=== PATIENT | female | born 1985 | race Caucasian/White ===

== ENCOUNTER 2017-07-07 13:21 | Emergency (ER) | payer OTHER ==
[2017-07-07 14:31] VITALS: BP 102/72
[2017-07-07] MEDS ORDERED: Ketorolac INJ* 60 MG/2 ML VIAL IM ONE (15:16)
--- NOTE | 2017-07-07 15:24 | UC ---
Throat Pain/Nasal Travis HPI - HPI Summary HPI Summary: Pt presents with c/o sudden onset of "dizziness" when getting up from bed 2 weeks ago to use restroom. Pt reports that she has c/o generalized malaise, DAWSON , occipital head "fullness" and left eye pain. Pt was seen by Dr. Kamara, eye provider 1 week ago for c/o left eye pain pain was told she has "burst blood vessels" in left eye. Pt reports continued photophobia, maxillary and ethmoid sinus pressure but no nasal discharge. Pt denies any history of rash, fever, chills, lyme exposure, MS, Lupus, cough, SOB, or ear pain. - History of Current Complaint Chief Complaint: UCGeneralIllness Stated Complaint: VERTIGO/STIFF NECK Time Seen by Provider: 07/07/17 14:35 Hx Obtained From: Patient Hx Last Menstrual Period: 06/30/17 ?: No Onset/Duration: Gradual Onset, Lasting Weeks - 2, Still Present Severity: Mild Associated Signs & Symptoms: Positive: Sinus Discomfort - maxillary and ethmoid Related History: Seasonal Allergies - was treated 7 years ago by structural iron worker - Epiglottits Risk Factors Epiglottis Risk Factors: Negative - Allergies/Home Medications Allergies/Adverse Reactions: Allergies Allergy/AdvReac Type Severity Reaction Status Date / Time No Known Allergies Allergy Verified 07/07/17 14:24 Home Medications: Home Medications Ibuprofen [Advil] 400 mg PO Q4H PRN 07/07/17 [History Confirmed 07/07/17] PMH/Surg Hx/FS Hx/Imm Hx Previously Healthy: Yes - Surgical History Surgical History: Yes Surgery Procedure, Year, and Place: - Family History Known Family History: Positive: Cardiac Disease - Social History Occupation: Employed Full-time - owns [employer] Lives: With Family Alcohol Use: None Substance Use Type: None Smoking Status (MU): Never Smoked Tobacco Have You Smoked in the Last Year: No - Immunization History Most Recent Influenza Vaccination: Declined Most Recent Tetanus Shot: 07/08/16 Most Recent Pneumonia Vaccination: N/A Review of Systems Constitutional: Fatigue, Other - malaise Skin: Negative Eyes: Photophobia ENT: Sinus Pain/Tenderness - maxillary, Respiratory: Negative Cardiovascular: Negative Gastrointestinal: Negative Genitourinary: Negative Motor: Negative Neurovascular: Negative, Decreased Sensation Musculoskeletal: Myalgia - upper shoulders, base of skull, full ROM negative Kernigs Neurological: Headache Psychological: Negative All Other Systems Reviewed And Are Negative: Yes Physical Exam Triage Information Reviewed: Yes Appearance: Well-Appearing Vital Signs: Initial Vital Signs Temp 98 F 07/07/17 14:25 Pulse 78 07/07/17 14:25 Resp 16 07/07/17 14:25 BP 102/72 07/07/17 14:25 Pulse Ox 100 07/07/17 14:25 Vital Signs Reviewed: Yes Eye Exam: Normal ENT Exam: Other ENT: Positive: TMs normal, Other: - maxillary and ethmoid tenderness Dental Exam: Normal Neck exam: Normal, Other - negative kernig Neck: Positive: Supple, Nontender, No Lymphadenopathy Respiratory Exam: Normal Cardiovascular Exam: Normal Abdominal Exam: Normal Musculoskeletal Exam: Normal Neurological Exam: Normal Psychological Exam: Normal Skin Exam: Normal Throat Pain/Nasal Course/Dx - Course Course Of Treatment: I discussed with the pt the need to follow up with a PCP to establish continuity of care. Additionally, I discussed with patient that if her symptoms do not improve or worsen that she needs to seek medical attention as sson as possible for further evaluation and testing. Pt verbalized understanding and agreed to plan of care. Pt has limited risk for Lyme, consideration for Lupus or MS - Differential Dx/Diagnosis Differential Diagnosis/HQI/PQRI: Sinusitis, Other - tension headache Provider Diagnoses: sinusitis. tension headache Discharge - Discharge Plan Condition: Stable Disposition: HOME Prescriptions: Amoxicillin PO (*) [Amoxicillin 875 MG (*)] 875 mg PO Q12H #20 tab predniSONE TAB* [Deltasone TAB*] 30 mg PO DAILY #9 tab Patient Education Materials: Sinusitis (ED), Tension Headache (ED) Referrals: Aleisha Schneider MD [Medical Doctor] - As Soon As Possible Additional Instructions: Please follow up with your PCP or return to clinic as needed.
== END 2017-07-07 15:34 | disposition home or self-care (01) ==
LOC: UCCORT 13:21
DX: J32.9 Chronic sinusitis, unspecified (principal); G44.209 Tension-type headache, unspecified, not intractable
CPT/HCPCS: 96372; 99212; G0463; J1885

== ENCOUNTER 2018-07-20 07:12 | Inpatient (IN) | payer OTHER ==
[2018-07-20] MEDS ORDERED: OXYTOCIN* 10 UNITS/ML 1 ML VIAL ONE (10:12)
--- NOTE | 2018-07-20 10:17 | HP ---
General Information - General Information Maternal Age: 33 Grav: 4 Para: 3 SAB: 0 IEA: 0 Estimated Due Date: 07/24/18 Maternal Blood Type and Rh: O Positive - Results this Serology/RPR Result: Non-Reactive Rubella Result: Immune HBsAg Result: Negative HIV Result: Negative GBS Culture Result: Negative Past Medical History Delivery History: Hx Complicated Vaginal Delivery Pertinent Past Medical History: See Records Pertinent Past Surgical History: See Records Pertinent Family History: See Records - Antepartal Records Antepartal Records: Reviewed, Complicated by: - previous section Review of Systems Constitutional: Comfortable CV Complaint: No Respiratory: Shortness of Breath: No Genitourinary: No Bleeding, No Leaking Fluid Musculoskeletal: Contractions Neurological: No Headache Movement: Normal Exam Allergies/Adverse Reactions: Allergies No Known Allergies Allergy (Verified 07/07/17 14:24) Vital Signs 07/20/18 07/20/18 07:15 09:55 Temperature 98.2 F Pulse Rate 80 Respiratory 17 17 Rate Blood Pressure 130/75 (mmHg) O2 Sat by Pulse 100 Oximetry Lab Values - Entire Visit: Laboratory Tests 07/20/18 08:00 Blood Type O Positive Antibody Screen Negative - Measurements Height: 5 ft 7 in Weight: 186 lb Weight in lbs: [phone] Body Mass Index (BMI): 29.1 Pre- Weight: 145 lb 0.015 oz Weight Gained This : 40.999 lbs and 0.001 ozs - Exam Breast: Breast Exam Deferred Extremities: No Edema Heart: Normal Rhythm/Heart Sounds HEENT: No Significant Findings Lungs: Clear Bilaterally Rectal: Rectal Exam Deferred Reflexes: DTR 2+ Targeted Exam Findings Cervical Exam: 8cm Effacement: 80%, 90% Station: -2 Presenting Part: Vertex Membrane Status: Intact EFM Findings - External Monitor Findings External Monitor Findings: Accelerations Present, Variability Moderate, Baseline Stable Contractions: Regular, Moderate, 45-90 Seconds Assessment/Plan - Assessment in labor/ GBS negative/ in labor . anesthesia aware. - Plan Plan: Admit - Anticipate Vaginal Delivery
--- NOTE | 2018-07-20 10:18 | PROCNOTE ---
[facility] OB: Delivery Note - Delivery A Date of : 07/20/18 Time of : 09:28 Score 1 Minute: 9 Score 5 Minutes: 9 Gestational Age in Weeks and Days at Delivery: 39 Weeks and 3 Days Delivery Method: Spontaneous Vaginal Labor: Spontaneous Amniotic Fluid: Clear Estimated Blood Loss: 200 Anesthesia/Analgesia: None Anesthesia Comment: None Delivered By: Everton Kate - Nursery Level of Nursery: Regular/Bedside - Perineum Perineal Injury: None/Intact Perineal Repair: None - Events Delivery Events of Note: Protracted/Long Labor - prolonged 2nd stage, Pitocin Only After Delivery Delivery Events of Note Comment: Pitocin Infusion started after delivery of Placenta
[2018-07-20] MEDS ORDERED: Dibucaine 1% 28.35 GM TUBE ONE (11:22)
[2018-07-20] MEDS ORDERED: Witch Hazel PAD* JAR ONE (11:22)
[2018-07-20] MEDS ORDERED: Ibuprofen TAB* 600 MG ONE (11:33)
[2018-07-20] MEDS ORDERED: Dibucaine 1% 28.35 GM TUBE PR PRN (11:39)
[2018-07-20] MEDS ORDERED: Glycerin ADULT SUPP PR PRN (11:39)
[2018-07-20] MEDS ORDERED: Witch Hazel PAD* JAR TOPICAL PRN (11:39)
[2018-07-20] MEDS ORDERED: Acetaminophen TAB* 325 MG PO PRN (11:39)
[2018-07-20] MEDS ORDERED: OXYTOCIN* 10 UNITS/ML 1 ML VIAL IV ONE (11:39)
[2018-07-20] MEDS ORDERED: Simethicone TAB* 80 MG TAB.CHEW PO SCH (12:30)
[2018-07-20] MEDS: Docusate CAP* 100 MG PO SCH ×2 (14:52→20:45)
[2018-07-20] MEDS: Ibuprofen TAB* 600 MG PO PRN (17:59)
[2018-07-21] MEDS: Ibuprofen TAB* 600 MG PO PRN
[2018-07-21 06:22] LABS: ABS Basophils 0.1 10^3/ul (0-0.2); ABS Eosinophils 0 10^3/ul (0-0.6); ABS Lymphocytes 1.7 10^3/ul (1.0-4.8); ABS Monocytes 0.5 10^3/ul (0-0.8); ABS Neutrophils 6.8 10^3/ul (1.5-7.7); ABS Nucleated RBC 0 10^3/ul; Eosinophil % 0.5 % (0-6); Hematocrit 37 % (35-47); Hemoglobin 13.2 g/dl (12.0-16.0); Lymphocyte % 18.2 % (25-47); Mean Corpuscular HGB Conc 36 g/dl (31-36); Mean Corpuscular Hemoglobin 34 pg (27-31); Mean Corpuscular Volume 96 fL (80-97); Mean Platelet Volume 10.3 um3 (7.4-10.4); Nucleated Red Blood Cells % 0.1; Platelet Count 109 10^3/ul (150-450); Red Blood Count 3.85 10^6/ul (4.00-5.40); Red Cell Distribution Width 13 % (10.5-15); White Blood Count 9.1 10^3/ul (3.5-10.8)
[2018-07-21] MEDS: Docusate CAP* 100 MG PO SCH (08:31)
[2018-07-21] MEDS ORDERED: Ferrous Gluconate TAB* 324 MG TAB PO SCH (09:00)
[2018-07-21 09:12] VITALS: BP 118/76
== END 2018-07-21 11:56 | disposition home or self-care (01) | DRG 560 ==
LOC: MCHOBOUT 07:12 → MCHOB 08:03
PROVIDERS: ADMIT Obstetrics & Gynecology; ATTEND Obstetrics & Gynecology
PROC: 10907ZC Drainage of Amniotic Fluid, Therapeutic from Products of Conception, Via Natural or Artificial Opening (ICD-10-PCS; principal; 2018-07-20)
PROC: 10E0XZZ Delivery of Products of Conception, External Approach (ICD-10-PCS; 2018-07-20)
PROC: 4A1HX4Z Monitoring of Products of Conception, Cardiac Electrical Activity, External Approach (ICD-10-PCS; 2018-07-20)
DX: O69.1XX0 Labor and delivery complicated by cord around neck, with compression, not applicable or unspecified (principal); O34.211 Maternal care for low transverse scar from previous cesarean delivery; Z3A.39 39 weeks gestation of pregnancy; Z37.0 Single live birth; O63.1 Prolonged second stage (of labor)
CPT/HCPCS: 36415; 85025; 86850; 86900; 86901; A9270-GY; J2590